=== PATIENT | female | born 2000 | race Caucasian/White ===

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

== ENCOUNTER 2018-05-13 13:48 | Observation (INO) | payer MEDICAID ==
[~2018-05-13 13:48] MED LIST: GLYCOPYRROLATE 1 MG/5 ML SYRINGE ONE; NEOSTIGMINE METHYLSULFATE 10 MG/10 ML VIAL ONE; ONDANSETRON HCL INJ/PF 4 MG/2 ML SDV ONE; ROCURONIUM BROMIDE INJ 50 MG/5 ML VIAL IV ONE; SUCCINYLCHOLINE CHLORIDE INJ 200 MG/10 ML VIAL ONE
[2018-05-13] MEDS ORDERED: NORMAL SALINE 1000 ML 1,000 ML IV ONE ×3 (14:05→17:29)
[2018-05-13] MEDS ORDERED: NORMAL SALINE 250 ML IV PRN ×2 (14:10)
--- NOTE | 2018-05-13 14:13 | ER Document Report ---
ED Medical Screen (RME) - General Chief Complaint: Vaginal Bleeding Stated Complaint: HEAVY VAGINAL BLEEDING Time Seen by Provider: 05/13/18 14:03 TRAVEL OUTSIDE OF THE [place] IN LAST 30 DAYS: No - HPI Patient complains to provider of: Vaginal bleeding Onset: Other - This 17-year-old female presents for vaginal bleeding which began with associated cramping and pain, she notes that last night she passed a large large volume of clots which she mentions is at least a pint of blood and she progressed today it seemed to slow down and then will go to the bathroom she again passed was at least 5" x 5" of blood clot with some associated bleeding thereafter, the bleeding is continued profusely running down both legs. She does not have any known bleeding problems, has had a child in the past and had a section for that, because of the she has a scar she has not had any other problems that she knows of. She has had normal periods as recently as 3 and half weeks ago. - Related Data Allergies/Adverse Reactions: Penicillins Allergy (Verified 05/13/18 13:55) Hives risperidone [From Risperdal] Allergy (Verified 05/13/18 13:55) Past Medical History Pulmonary Medical History: Reports: Hx Asthma, Hx Bronchitis, Hx Pneumonia Neurological Medical History: Reports: Hx Migraine Renal/ Medical History: Denies: Hx Peritoneal Dialysis Psychiatric Medical History: Reports: Hx Anxiety, Hx Bipolar Disorder, Hx Depression Past Surgical History: Reports: Hx Adenoidectomy, Hx Section, Hx Tonsillectomy - Immunizations Immunizations up to date: Yes Physical Exam - Vital signs Vitals: Temp Pulse BP Pulse Ox 98.4 F 144 H 130/110 H 100 05/13/18 13:52 05/13/18 13:52 05/13/18 13:52 05/13/18 13:52 Course - Re-evaluation Re-evalutation: 05/13/18 14:12 This 17-year-old female presents for evaluation of profound vaginal bleeding with cramping lightheadedness chest pain shortness of breath. Examination she is actively bleeding at this time, her heart rate demonstrates marked tachycardia, she is demonstrating appropriate cognition however is conversive and otherwise alert. Because of the profound tachycardia will plan for placement of 2 large-bore IVs , will type and screen, will plan for patient to undergo immediate placement in room with monitor, will obtain CBC and BMP as well as coags. - Vital Signs Vital signs: Temp Pulse Resp BP Pulse Ox 98.4 F 144 H 130/110 H 100 05/13/18 13:52 05/13/18 13:52 05/13/18 13:52 05/13/18 13:52
[2018-05-13 14:31] LABS: INTERNATIONAL RATION (INR) 0.97; PROTHROMBIN TIME 13.4 SEC (11.4-15.4)
[2018-05-13 14:32] LABS: ABSOLUTE EOSINOPHILS # (AUTO) 0.1 10^3/uL (0.0-0.6); ABSOLUTE LYMPHOCYTES (AUTO) 2.6 10^3/uL (0.5-4.7); ABSOLUTE MONOCYTES (AUTO) 0.6 10^3/uL (0.1-1.4); ABSOLUTE NEUT (AUTO) 5.4 10^3/uL (1.7-8.2); BASOPHILS % (AUTO) 0.4 % (0-2); EOSINOPHILS % (AUTO) 0.7 % (0-6); HEMATOCRIT 38.1 % (36.0-47.0); HEMOGLOBIN 13.6 g/dL (12.0-15.5); LYMPHOCYTES % (AUTO) 29.7 % (13-45); MEAN CORPUSCULAR HEMOGLOBIN 31.3 pg (27.0-33.4); MEAN CORPUSCULAR HGB CONC 35.7 g/dL (32.0-36.0); MEAN CORPUSCULAR VOLUME 88 fl (80-97); PARTIAL THROMBOPLASTIN TIME 25.8 SEC (23.5-35.8); PLATELET COUNT 349 10^3/uL (150-450); RED BLOOD COUNT 4.35 10^6/uL (3.72-5.28); RED CELL DISTRIBUTION WIDTH 13.4 % (11.5-14.0); SEGMENTED NEUTROPHILS % (AUTO) 62.2 % (42-78); TOTAL CELLS COUNTED % (AUTO) 100 %; WHITE BLOOD COUNT 8.7 10^3/uL (4.0-10.5)
[2018-05-13] MEDS ORDERED: MORPHINE SULFATE 10 MG/ML INJ IV ONE (14:45)
--- NOTE | 2018-05-13 14:52 | ER Document Report ---
ED GI/ - General Chief Complaint: Vaginal Bleeding Stated Complaint: HEAVY VAGINAL BLEEDING Time Seen by Provider: 05/13/18 14:03 Mode of Arrival: Ambulatory Information source: Patient TRAVEL OUTSIDE OF THE [place] IN LAST 30 DAYS: No - HPI Patient complains to provider of: Vaginal bleeding Onset: Just prior to arrival Timing/Duration: Sudden Quality of pain: Achy, Cramping Severity at maximum: Moderate Severity in ED: Moderate Pain Level: 4 Location: Pelvis Vaginal bleeding (Compared to normal period): Heavier, Passing clots Associated symptoms: Lightheaded Exacerbated by: Denies Relieved by: Denies Similar symptoms previously: No Recently seen / treated by doctor: No Notes: 05/13/18 14:48 Patient is a 17-year-old female who is with an elective that occurred approximately 2 months ago, presenting to the emergency room complaining of heavy vaginal bleeding with passage of large clots and pelvic cramping that started approximately 30 minutes prior to arrival, her last menstrual period was 3-1/2 weeks ago and normal, she reports feeling lightheaded as well - Related Data Allergies/Adverse Reactions: Penicillins Allergy (Verified 05/13/18 13:55) Hives risperidone [From Risperdal] Allergy (Verified 05/13/18 13:55) Past Medical History - General Information source: Patient - Social History Smoking Status: Never Smoker Family History: Reviewed & Not Pertinent Patient has suicidal ideation: No Patient has homicidal ideation: No Pulmonary Medical History: Reports: Hx Asthma, Hx Bronchitis, Hx Pneumonia Neurological Medical History: Reports: Hx Migraine Renal/ Medical History: Denies: Hx Peritoneal Dialysis Psychiatric Medical History: Reports: Hx Anxiety, Hx Bipolar Disorder, Hx Depression Past Surgical History: Reports: Hx Adenoidectomy, Hx Section, Hx Tonsillectomy - Immunizations Immunizations up to date: Yes Review of Systems - Review of Systems Constitutional: No symptoms reported EENT: No symptoms reported Cardiovascular: No symptoms reported Respiratory: No symptoms reported Gastrointestinal: No symptoms reported Genitourinary: No symptoms reported Female Genitourinary: See HPI Musculoskeletal: No symptoms reported Skin: No symptoms reported Hematologic/Lymphatic: No symptoms reported Neurological/Psychological: No symptoms reported -: Yes All other systems reviewed and negative Physical Exam - Vital signs Vitals: Temp Pulse BP Pulse Ox 98.4 F 144 H 130/110 H 100 05/13/18 13:52 05/13/18 13:52 05/13/18 13:52 05/13/18 13:52 Interpretation: Hypertensive, Tachycardic - General General appearance: Appears well, Alert - HEENT Head: Normocephalic, Atraumatic Eyes: Normal Pupils: PERRL - Respiratory Respiratory status: No respiratory distress Chest status: Nontender Breath sounds: Normal Chest palpation: Normal - Cardiovascular Rhythm: Regular Heart sounds: Normal auscultation Murmur: No - Abdominal Inspection: Normal Distension: No distension Bowel sounds: Normal Tenderness: Nontender Organomegaly: No organomegaly - Genitourinary Vaginal bleeding: Heavy - Back Back: Normal, Nontender - Extremities General upper extremity: Normal inspection, Nontender, Normal color, Normal ROM , Normal temperature General lower extremity: Normal inspection, Nontender, Normal color, Normal ROM , Normal temperature, Normal weight bearing. No: Earle's sign - Neurological Neuro grossly intact: Yes Cognition: Normal Orientation: AAOx4 Shahbaz Coma Scale Eye Opening: Spontaneous Shahbaz Coma Scale Verbal: Oriented Shahbaz Coma Scale Motor: Obeys Commands Shahbaz Coma Scale Total: 15 Speech: Normal Motor strength normal: LUE, RUE, LLE, RLE Sensory: Normal - Psychological Associated symptoms: Normal affect, Normal mood - Skin Skin Temperature: Warm Skin Moisture: Dry Skin Color: Normal Course - Re-evaluation Re-evalutation: 05/13/18 15:44 Call was placed to on-call EQUIPMENT OILER, Dr. Cerda, whose recommends patient receive Provera 10 mg and continue to observe until bleeding slows or stops, also request a pelvic ultrasound be performed 05/13/18 16:53 EQUIPMENT OILER was called again, patient's current condition which is deteriorated as well as vital signs and ultrasound findings were discussed, she will take patient to the OR for exploratory laparoscopy - Vital Signs Vital signs: Temp Pulse Resp BP Pulse Ox 97.6 F 100 H 16 109/52 L 100 05/13/18 20:52 05/13/18 20:52 05/13/18 20:52 05/13/18 20:52 05/13/18 20:52 - Laboratory Result Diagrams: 05/13/18 16:41 05/13/18 14:15 Laboratory results interpreted by me: 05/13/18 05/13/18 05/13/18 14:15 14:15 14:15 WBC RBC Hgb Hct Chloride 108 H Carbon Dioxide 20 L Beta HCG, Quant 12.38 H Crossmatch See Detail 05/13/18 16:41 WBC 17.3 H RBC 2.98 L Hgb 9.2 L D Hct 26.7 L Chloride Carbon Dioxide Beta HCG, Quant Crossmatch Critical Care Note - Critical Care Note Total time excluding time spent on procedures (mins): 60 Comments: Patient with heavy vaginal bleeding, persistently tachycardic, with periods of hypotension, diaphoresis and pale, requiring transfer to the OR for emergent exploratory laparoscopy Discharge - Discharge Clinical Impression: Vaginal bleeding, Ovarian mass, right Condition: Serious Disposition: ADMITTED INPATIENT Admitting Provider: [facility] Admitted: Post
[2018-05-13 15:27] LABS: ALANINE AMINOTRANSFERASE 24 U/L (5-35); ALBUMIN 4.3 g/dL (3.7-5.6); ALKALINE PHOSPHATASE 73 U/L (50-135); ANION GAP 13 (5-19); ASPARTATE AMINO TRANSFERASE 22 U/L (5-30); BILIRUBIN,DIRECT 0.2 mg/dL (0.0-0.4); BILIRUBIN,TOTAL 0.7 mg/dL (0.2-1.3); BLOOD UREA NITROGEN 13 mg/dL (7-20); CALCIUM 9.5 mg/dL (8.4-10.2); CARBON DIOXIDE 20 mmol/L (22-30); CHLORIDE 108 mmol/L (98-107); GLUCOSE 110 mg/dL (75-110); POTASSIUM 4.1 mmol/L (3.6-5.0); SODIUM 141.1 mmol/L (137-145); TOTAL PROTEIN 7.1 g/dL (6.3-8.2)
[2018-05-13] MEDS ORDERED: MEDROXYPROGESTERONE ACET 10 MG TABLET PO ONE (15:35)
[2018-05-13] MEDS ORDERED: ONDANSETRON HCL INJ/PF 4 MG/2 ML SDV ONE ×2 (16:32→17:21)
--- NOTE | 2018-05-13 16:33 | RADIOLOGY REPORT (SQ) ---
EXAM DESCRIPTION: U/S NON OB PEL W/DOPPLER COMPLETED DATE/TIME: 05/13/2018 4:21 pm REASON FOR STUDY: heavy vaginal bleeding COMPARISON: None. TECHNIQUE: Dynamic and static grayscale images acquired of the pelvis via transabdominal approach an d recorded on PACS. Additional selected color Doppler and spectral images recorded. LIMITATIONS: None. FINDINGS: UTERUS: Contour normal. No mass. ENDOMETRIAL STRIPE: No focal thickening. Tiny amount of fluid is identified in endometrial canal. CERVIX: No nabothian cysts. RIGHT OVARY AND DOPPLER: Hypoechoic mass is identified measuring 7.7 x 5.9 x 8.3 cm in diameters most consistent with a complex cyst. Other etiologies cannot be completely excluded. Clinical correlati on is recommended. LEFT OVARY AND DOPPLER: Left ovary is not visualized. FREE FLUID: None noted. OTHER: No other significant finding. MEASUREMENTS: UTERUS: 13.0 x 4.7 x 5.3 cm ENDOMETRIAL STRIPE: 2.4 mm RIGHT OVARY: Not visualized LEFT OVARY: Not visualized IMPRESSION: Hypoechoic mass in the right adnexal region as noted above most consistent with a comple x cyst. Other etiologies cannot be completely excluded. Clinical correlation followup is recommende d. Other findings as noted above. TECHNICAL DOCUMENTATION: JOB ID: [id number] [employer]- All Rights Reserved Rev-02/03 Reading location - IP/workstation name: [email or web address]
[2018-05-13] MEDS ORDERED: ONDANSETRON HCL INJ/PF 4 MG/2 ML SDV IV ONE (16:59)
[2018-05-13 17:07] LABS: HEMATOCRIT 26.7 % (36.0-47.0); MEAN CORPUSCULAR HGB CONC 34.6 g/dL (32.0-36.0); MEAN CORPUSCULAR VOLUME 90 fl (80-97); PLATELET COUNT 273 10^3/uL (150-450); RED BLOOD COUNT 2.98 10^6/uL (3.72-5.28); RED CELL DISTRIBUTION WIDTH 13.3 % (11.5-14.0); WHITE BLOOD COUNT 17.3 10^3/uL (4.0-10.5)
[2018-05-13 17:08] LABS: HEMOGLOBIN 9.2 g/dL (12.0-15.5)
[2018-05-13] MEDS ORDERED: MIDAZOLAM 2 MG/2 ML INJ ONE (17:21)
[2018-05-13] MEDS ORDERED: FENTANYL CITRATE INJ/PF 250 MCG/5 ML AMPULE ONE (17:21)
[2018-05-13] MEDS ORDERED: DEXAMETHASONE SOD PHOSPHATE INJ 4 MG/1 ML VIAL ONE (17:21)
[2018-05-13] MEDS ORDERED: ACETAMINOPHEN 1,000 MG/100 ML RTUPB IV ONE (17:22)
[2018-05-13] MEDS ORDERED: PROPOFOL INJ 200 MG/20 ML VIAL IV ONE (17:22)
[2018-05-13] MEDS ORDERED: DIPHENHYDRAMINE HCL 50 MG/ML VIAL IV PRN (17:29)
[2018-05-13] MEDS ORDERED: MEPERIDINE HCL/PF INJ 25 MG/1 ML DISP.SYRIN IV PRN (17:29)
[2018-05-13] MEDS ORDERED: IPRATROPIUM/ALBUTEROL 0.5-2.5 MG/3 ML AMPUL NEB ONE (17:29)
[2018-05-13] MEDS ORDERED: FENTANYL CITRATE INJ/PF 100 MCG/2 ML AMPUL IV PRN ×3 (17:29)
[2018-05-13] MEDS ORDERED: PROMETHAZINE HCL INJ 25 MG/1 ML VIAL IV PRN (17:29)
[2018-05-13] MEDS ORDERED: BUPIVACAINE HCL 0.5 % INJ/PF 30 ML SDV ONE (18:23)
[2018-05-13] MEDS ORDERED: METHYLERGONOVINE MALEATE INJ/PF 0.2 MG/1 ML AMPULE ONE (19:07)
[2018-05-13] MEDS ORDERED: PROMETHAZINE HCL INJ 25 MG/1 ML VIAL ONE (19:32)
--- NOTE | 2018-05-13 20:02 | Operative Report ---
Operative Report DATE OF SURGERY: 05/13/18 Operative Report: DIAGNOSTIC LAPAROSCOPY, SUCTION DILATION AND CURETTAGE PREOPERATIVE DIAGNOSIS: ADNEXAL MASS, COMPLEX OVARIAN CYST, ACUTE BLOOD LOSS ANEMIA, VAGINAL BLEEDING POSTOPERATIVE DIAGNOSIS: MODERATE ADHESIVE DISEASE UTERUS TO ANTERIOR ABDOMINAL WALL. RETAINED PRODUCTS OF CONCEPTION. ACUTE BLOOD LOSS ANEMIA. VAGINAL BLEEDING OPERATION: DIAGNOSTIC LAPAROSCOPY. SUCTION DILATION AND CURETTAGE SURGEON: MIRANDA BEAVERS 1ST [employer] BLANKET MAKER: CARL LIN 2ND [employer] Boat Captain: CARL LIN ANESTHESIA: GA TISSUE REMOVED OR ALTERED: PRODUCTS OF CONCEPTION, ENDOMETRIAL CURETTINGS COMPLICATIONS: NONE PATIENT DID HAVE ACUTE BLOOD LOSS ANEMIA PRIOR TO SURGERY ESTIMATED BLOOD LOSS: 50 ML INTRAOPERATIVE FINDINGS: ADHESIVE DISEASE UTERUS TO ABDOMINAL WALL. NORMAL APPEARING UTERUS EXCEPT FOR ADHESION. NORMAL APPEARING BILATERAL FALLOPIAN TUBES AND OVARIES. RETAINED PRODUCTS OF CONCEPTION PROCEDURE: Patient was taking to the operating room. She had general endotracheal anesthesia. She was placed in dorsal supine lithotomy position. She did not require antibiotics but had sequential compression devices in place. Her abdomen was prepped with Chloraprep. Her vagina was prepped with betadine. She was steriley draped. At the abdomen, two towel clamps were placed and a small infraumbilical incision was made with scalpel. Veress needle was used to insufflate the abdomen with CO2. She had a 5 mm trochar with laparoscope placed. A second 5-mm trochar placed after small incision made with scalpel also placed into the left lower quadrant. Inspection of the abdomen revealed a densely adhesed uterus to the anterior abdominal wall. She had normal appearing bilateral fallopian tubes and ovaries. Small amount of old blood in posterior cul-de-sac. At this point attention was turned towards completing the laparoscopic portion as no complex cyst or 8 cm adnexal mass was noted. She did have dilated colon. Abdomen was exsufflated of all CO2 and trochars removed. Skin closed using 4-0 Monocryl in subcuticular fashion. Dermabond placed for closure and injected with lidocaine at the incision sites. In the vaginal portion, two right angle retractors were used to visualize the cervix. Anterior portion was grasped with tenaculum. She was sounded to about 8 cm. Using a curved 8-Icelandic suction curette she had removal of what appeared to be products of conception. She was then sharply curettaged with a size 2 sharp curette circumferentially until appropriate grittiness was observed. Bleeding improved and no further tissue was noted.All instruments removed. Hemostasis was noted. She tolerated the procedure well and taken to recovery in stable condition. All sponge counts, lap counts, instruments, and needles were correct x 2.
[2018-05-13] MEDS ORDERED: RINGERS SOLUTION,LACTATED 1,000 ML IV PRN (20:17)
[2018-05-13 21:50] VITALS: BP 108/62
== END 2018-05-13 22:09 | disposition home or self-care (01) ==
LOC: ER 13:48 → INTOOBSV 17:27 → EH 17:27 → 2N 20:47
PROVIDERS: ADMIT Obstetrics & Gynecology; ATTEND Obstetrics & Gynecology
PROC: 10D18ZZ Extraction of Products of Conception, Retained, Via Natural or Artificial Opening Endoscopic (ICD-10-PCS; principal; 2018-05-13 18:15)
DX: O04.6 Delayed or excessive hemorrhage following (induced) termination of pregnancy (principal); D62 Acute posthemorrhagic anemia; N73.6 Female pelvic peritoneal adhesions (postinfective); R03.0 Elevated blood-pressure reading, without diagnosis of hypertension; I95.9 Hypotension, unspecified; R07.9 Chest pain, unspecified; K59.39 Other megacolon; Z98.890 Other specified postprocedural states
CPT/HCPCS: 59812; 99291; 96361; 96374; 96375; 86900; 86901; 36415; 86850; 84702; 85025; 85027; 85610; 85730; 80053; 86920; 76856; 93976; J2250; J3490 ×4; J1100; J3010; J2210; J2270; J2550; J0330; J2405; J7030; J2704; J7620; J0131; 840; 88305

== ENCOUNTER 2019-04-14 05:54 | Emergency (ER) | payer SELFPAY ==
[2019-04-14] MEDS ORDERED: MAG HYDROX/AL HYDROX/SIMETH SUSP 30 ML UDCUP PO ONE (07:19)
[2019-04-14] MEDS ORDERED: LIDOCAINE 2% VISCOUS SOLN 20 ML UDCUP PO ONE (07:19)
--- NOTE | 2019-04-14 07:24 | ER Document Report ---
ED General - General Chief Complaint: Chest Pain Stated Complaint: CHEST PAIN Time Seen by Provider: 04/14/19 06:56 TRAVEL OUTSIDE OF THE [place] IN LAST 30 DAYS: No - HPI Notes: Patient is a 18-year-old female who presents emergency department for evaluation of a tightness in her epigastric and chest region. She states she has had it really intermittently for the last 2 years, since her daughter was born. She states it feels like a tightness, a weight. She states that she is getting it nearly daily. Nothing seems to precipitate it. She states the pain seems to be worse when she is either feeling anxious or hungry. She denies any water brash. No fevers or chills. No nausea or vomiting. Normal bowel movements. Normal urination. She states she feels slightly short of breath with it. The pain does not radiate out of the epigastric and chest regions. No melena or hematochezia. She states she really has not had any improvement with vistaril. - Related Data Allergies/Adverse Reactions: Penicillins Allergy (Verified 05/13/18 13:55) Hives risperidone [From Risperdal] Allergy (Verified 05/13/18 13:55) Past Medical History - General Information source: Patient - Social History Smoking Status: Current Some Day Smoker - Marijuana Cigarette use (# per day): No Drug Abuse: Marijuana Family History: CVA, Other - CHF Patient has suicidal ideation: No Patient has homicidal ideation: No Pulmonary Medical History: Reports: Hx Asthma, Hx Bronchitis, Hx Pneumonia Neurological Medical History: Reports: Hx Migraine Renal/ Medical History: Denies: Hx Peritoneal Dialysis Psychiatric Medical History: Reports: Hx Anxiety, Hx Bipolar Disorder, Hx Depression Past Surgical History: Reports: Hx Adenoidectomy, Hx Section, Hx Tonsillectomy - Immunizations Immunizations up to date: Yes Review of Systems - Review of Systems Constitutional: No symptoms reported EENT: No symptoms reported Cardiovascular: See HPI Respiratory: See HPI Gastrointestinal: See HPI Genitourinary: No symptoms reported Musculoskeletal: No symptoms reported Skin: No symptoms reported Neurological/Psychological: No symptoms reported Physical Exam - Vital signs Vitals: Temp Pulse Resp BP Pulse Ox 98.3 F 86 18 121/68 98 04/14/19 05:57 04/14/19 05:57 04/14/19 05:57 04/14/19 05:57 04/14/19 05:57 - Notes Notes: Vital signs reviewed, please refer to chart. Head is normocephalic, atraumatic. Pupils equal round, reactive to light. Neck is supple without meningismus. Heart is regular rate and rhythm. Lungs are clear to auscultation bilaterally. Abdomen is soft, mildly tender in the epigastric region without rebound or guarding, normoactive bowel sounds throughout. Extremities without cyanosis, clubbing. Posterior calves are nontender. Peripheral pulses are equal. Skin is warm and dry. Patient is awake, alert, neurological exam is nonfocal. Course - Re-evaluation Re-evalutation: 04/14/19 07:23 Patient presents emergency department for evaluation. She is had this pain intermittently for nearly 2 years. It certainly sounds like there is an aspect of anxiety to it. I do suspect she also may have a gastritis/acid reflux component. She does have some abdominal tenderness but her abdomen is nonsurgical. Her vitals are stable. She has no signs of bleeding. I will go ahead and treat her with a GI cocktail. I did talk to the patient about my suspicions. I also strongly suggest she start herself on an H2 marcin. I did recommend Zantac. Patient given a GI cocktail here. She is to follow-up with primary care, return to the ED with worsening or new concerning symptoms of any sort. 04/14/19 08:48 Patient really had no relief with the GI cocktail. I do believe that there is some aspect of gastritis/GI etiology to this pain, but I also suspect that anxiety is a strong component. I asked the patient if she had been on a medication in the past to help prevent anxiety. She has not. I suggest that she perhaps talk to her primary care provider about a medication like BuSpar. She voiced understanding to this. Otherwise, I still recommend a trial of H2 blockers to see if this helps. She is to follow-up with primary care, return to the ED with worsening or new concerning symptoms of any sort. - Vital Signs Vital signs: Temp Pulse Resp BP Pulse Ox 98.3 F 86 18 121/68 98 04/14/19 05:57 04/14/19 05:57 04/14/19 05:57 04/14/19 05:57 04/14/19 05:57 Discharge - Discharge Clinical Impression: Epigastric pain Chest pain Qualifiers: Chest pain type: unspecified Qualified Code(s): R07.9 - Chest pain, unspecified Condition: Stable Disposition: HOME, SELF-CARE Instructions: Chest Pain of Unclear Cause ([facility]), Abdominal Pain ([facility]) Additional Instructions: No clear cause was found for your chest pain today. A trial of Zantac may help with your symptoms. Please take this daily, starting tonight. Follow-up with primary care, consider referral to gastroenterology, in the next week. Return to the emergency department with worsening or new concerning symptoms of any sort.
[2019-04-14 08:58] VITALS: BP 118/67
--- NOTE | 2019-04-14 23:23 | EKG REPORT ---
SEVERITY:- NORMAL ECG - SINUS RHYTHM : Confirmed by: Shanice Dunn 14-Apr-2019 23:23:01
== END 2019-04-14 08:57 | disposition home or self-care (01) ==
LOC: ER 05:54
DX: R07.89 Other chest pain (principal); R10.13 Epigastric pain; R06.02 Shortness of breath; F12.10 Cannabis abuse, uncomplicated; J45.909 Unspecified asthma, uncomplicated; Z88.0 Allergy status to penicillin; Z88.8 Allergy status to other drugs, medicaments and biological substances
CPT/HCPCS: 93005; 99284; 93010; J3490